=== PATIENT | female | born 1970 | race Two or more races ===

== ENCOUNTER 2025-04-01 04:46 | Emergency (ER) | payer BC, MEDICAID ==
[2025-04-01] MEDS: Erythromycin Base 0.5% Ophth Oint 3.5 GM Tube EYEBOTH ONE (06:23)
== END 2025-04-01 06:52 | disposition home or self-care (01) ==
LOC: CC.ED 04:46
DX: H10.9 Unspecified conjunctivitis (principal); Z88.0 Allergy status to penicillin; Z88.2 Allergy status to sulfonamides
CPT/HCPCS: 99282; 99283